=== PATIENT | male | born 1955 | race Caucasian/White ===

== ENCOUNTER → 2016-10-28 | Outpatient (CLI) | payer BC ==
[~2016-10-28] MED LIST: IBUP-103 PO
[2016-10-28 13:43] LABS: ALT/SGPT 50 U/L (12-78); AST/SGOT 18 U/L (15-37); BLOOD UREA NITROGEN 19 mg/dl (7-18); BUN/CREATININE RATIO 15.8 (10-20); CALCIUM 8.8 mg/dl (8.5-10.1); CARBON DIOXIDE 27 mmol/L (21-32); CHLORIDE 107 mmol/L (98-107); CHOLESTEROL 228 mg/dl (0-200); GLUCOSE 95 mg/dl (70-99); POTASSIUM 3.8 mmol/L (3.5-5.1); SODIUM 142 mmol/L (136-145); TRIGLYCERIDES 225 mg/dl (0-150); VERY LOW DENSITY LIPOPROT CALC 45 mg/dl
[2016-10-28 13:45] LABS: ALB/GLOB RATIO 1.1 (0.9-2); ALKALINE PHOSPHATASE 70 U/L (45-117); CHOLESTEROL/HDL RATIO 4.5; HDL CHOLESTEROL 51 mg/dl
[2016-10-28 13:47] LABS: ESTIMATED AVERAGE GLUCOSE 117 mg/dl; HA1C FLAG Normal (Normal)
== END | disposition home or self-care (01) ==
LOC: C.LABSPEC 12:37
PROVIDERS: ATTEND Internal Medicine
DX: E78.5 Hyperlipidemia, unspecified (principal); E73.9 Lactose intolerance, unspecified

== ENCOUNTER → 2016-12-21 | Outpatient (CLI) | payer BC | END | disposition home or self-care (01) | LOC: C.LABSPEC 15:05 | PROVIDERS: ATTEND Internal Medicine | DX: M70.22 Olecranon bursitis, left elbow (principal) ==

== ENCOUNTER → 2017-09-08 | Outpatient (CLI) | payer BC ==
[2017-09-08 13:51] LABS: INFLUENZA B ANTIGEN Neg for Influ B (NEG)
== END | disposition home or self-care (01) ==
LOC: C.LABSPEC 12:19
PROVIDERS: ATTEND Internal Medicine
DX: B34.9 Viral infection, unspecified (principal)

== ENCOUNTER 2017-09-19 15:22 | Emergency (ER) | payer BC ==
[~2017-09-19] VITALS: Ht 182.9 cm; Wt 89.0 kg
[2017-09-19 15:43] VITALS: TEMP 36.8; Ht 182.9 cm; Wt 89.0 kg
[2017-09-19] MEDS ORDERED: DIPHTHERIA/TETANUS/PERTUSSIS 0.5 ML SYR/VIAL IM. ONE (16:00)
[2017-09-19] MEDS ORDERED: LIDOCAINE/EPINEPHRINE 1% 20 ML VIAL INFIL STA (16:00)
--- NOTE | 2017-09-19 16:00 | EMERGENCY ROOM VISIT NOTE ---
ED Visit Note First contact with patient: 15:50 CHIEF COMPLAINT: Wrist injury HISTORY OF PRESENT ILLNESS: This 62 year old male patient presents to the emergency department, ambulatory, complaining of pain in the left wrist after falling, approximately 3 hours ago. The patient states he slipped on some ice, then landed into a pile of pallets. He believes he got his wrist caught in the pallets, then had to pull it out. He states he has been watching the news for the past 3 hours, but recently, noticed it swelling and look different than normal. The patient is able to move their wrist, but this is painful. The patient states the pain is throbbing and 5/10. No laceration of the left wrist, no weakness. No numbness or tingling. The patient denies any other injury. The patient is able to move their fingers and elbow without difficulty. The patient has not had a previous fracture to this wrist. The patient has taken nothing for the pain. He does report a laceration of the base of the right hand which continues to bleed. He states this is not painful and he denies any numbness/ tingling/weakness of this area. The patient states he is uncertain when his last tetanus vaccination was. REVIEW OF SYSTEMS: A 6 system review of systems was performed with positives and pertinent negatives in the HPI. ALLERGIES: None MEDICATIONS: None PMH: None SOCIAL HISTORY: The patient lives locally with family. He denies drug, alcohol , tobacco use. PHYSICAL EXAM: Vital Signs: Reviewed Nurse's notes, vital signs stable. GENERAL : This is a 62-year-old male, in no acute distress, but appears to be in pain, well-developed, well-nourished. NEURO: Alert and oriented to person place and time. Normal sensation to light and sharp touch. MUSCULOSKELETAL: There is mild swelling but no obvious deformity of the left wrist. There is tenderness and edema over the lateral aspect of the wrist, over the distal radius. There is no snuff box tenderness. Range of motion is full, but painful. There is no tenderness of the elbow, hand or fingers. Camp Counselor strength 5/5. Radial pulse 2+. SKIN: The skin of the left hand is intact. There are very superficial lacerations noted on the anterior aspect of the left wrist. There is a 1 cm long laceration on the anterior aspect of the right hand. The edges gape apart with traction. There is no foreign material in the wound and it looks clean. There is minimal bleeding. No deep structures such as tendons, bones, or significant blood vessels are seen in the base of the wound. Normal strength and movement of the fingers and wrist. Capillary refill less than 2 seconds. Normal sensation to light and sharp touch. RADIOLOGY: L WRIST W/NAVICULAR MIN 3 VIEWS CLINICAL HISTORY: left wrist pain/deformity, lateral trauma. Pain. COMPARISON: None. DISCUSSION: Oblique nondisplaced fracture base radial styloid extending to the articular surface. Lateral projection suggests several small avulsions dorsally which is most likely a nonacute. Moderate superimposed degenerative changes throughout. Moderate soft tissue edema IMPRESSION: Oblique fracture distal radius at the base of the radial styloid. This extends to the articular surface. EMERGENCY DEPARTMENT COURSE: I examined the patient. An X-ray of the left wrist was reviewed by myself and radiologist and showed distal radius fracture as above. A sugar tong orthoglass splint was placed under my direction and the position was satisfactory. Neurovascular status rechecked and intact. The patient is complaining of increased pain, and I offered pain medication, but he declines. Verbal consent was obtained to perform the procedure. Using sterile technique the wound was cleaned with Betadine. The area was sterilely draped. 4 ml of 1 % lidocaine with epinephrine was used to anesthetize the right hand. Once the patient was anesthetized, the wound was copiously irrigated under pressure with sterile saline. The wound was explored and there were no deep structures injured such as tendons, bone, or significant blood vessels. The laceration was repaired using 5 simple interrupted 5-0 nylon sutures with the wound edges being well approximated. The patient tolerated the procedure well. Hemostasis was achieved. The area was cleaned with sterile saline and dressed with bacitracin ointment and bandage. The patient was given a Tdap booster. The patient was discharged home in good condition. PDMP consulted, no findings noted. The patient was discharged home in good condition. I attest that I have personally reviewed the patient's current medication list. Patient was found to have normal blood pressure on screening and does not require follow-up. Differential diagnosis includes fracture, contusion, sprain/strain, open fracture, laceration, and others DIAGNOSIS: Left distal radius fracture, right hand laceration Problem List Medical Problems: (1) Kidney stones Status: Chronic Current/Historical Medications No Active Prescriptions or Reported Meds Allergies Coded Allergies: No Known Allergies (Unverified , 06/17/14) Vital Signs Date Time Temp Pulse Resp B/P (MAP) Pulse Ox O2 Delivery O2 Flow Rate FiO2 09/19/17 15:43 36.8 67 20 138/87 96 Room Air Medications Administered Medications (Trade) Dose Ordered Sig/Tiara Route Start Time Stop Time Status Last Admin Dose Admin Lidocaine/ Epinephrine (Xylocaine/Epine 1% Inj) 20 ml ONE STAT INFIL 09/19/17 16:00 09/19/17 16:02 DC 09/19/17 16:18 20 ML Diphtheria/ Pertussis/Tetanus Vacc (Adacel Inj) 0.5 ml ONCE ONCE IM. 09/19/17 16:00 09/19/17 16:02 DC 09/19/17 16:18 0.5 ML Departure Information Impression Primary Impression: Fracture of left distal radius Additional Impression: Laceration of right hand Dispostion Home / Self-Care Condition GOOD Prescriptions Oxycodone Ir (Roxicodone Ir) 5 Mg Tab 1 TAB PO Q4H Y for Pain, #15 TAB For Initial Treatment Prov: Sakina Gregorio PA-C 09/19/17 Referrals Jordy Jaramillo M.D. (PCP) Sanchez John D.O. Patient Instructions Distal Radius Fx, ED Fx Forearm Radius Ulna No Redu Requ, My [facility] Additional Instructions ORTHOPEDIC INSTRUCTIONS: DO NOT drive, drink alcohol, operate machinery, or perform dangerous activities today. You were given medications in the ER that can affect your ability to safely function or operate a vehicle. Oxycodone (OxyIR) 5mg: Take 1 pill every four to six hours as needed for breakthrough pain. Avoid alcohol, operating machinery or dangerous equipment, working on ladders or roofs, DRIVING, or situations where being under the influence may be dangerous. It is recommended to use an [id number] stool softener such as Colace, 100mg twice daily while taking this medication to avoid constipation. Ibuprofen(Motrin, Advil) may be used for fever or pain. Use 600mg every six hours as needed. Take with food. Avoid using more than 2400mg in a 24 hour period. Do not use 2400mg per day for more than three consecutive days without physician direction. Prolonged inappropriate use can lead to stomach upset or ulcers. (AND/OR) Acetaminophen(Tylenol) may be used for fever or pain. Use 1000mg every six hours as needed. Avoid using more than 3000mg in a 24 hour period. Ice compresses for 20 minutes at a time four times daily for 2-3 days. Use the sling as instructed. Remove your arm from the sling 4-6 times a day and move all the joints around to keep them loose. Rest and elevate your injury. Do not get the splint wet. If your splint feels excessively tight, you have worsening pain, develop numbness or tingling, or your digits appear blue, loosen the belkys wrap. Then reapply the belkys wrap gently without removing the splint. If your symptoms are not quickly relieved return to the ER for re- evaluation. Laceration Discharge Instructions: You have received 5 sutures on your right hand. These sutures are NOT dissolvable and WILL need to be removed by a health care provider in 8-10 days. You can return to the Emergency Department or contact your Primary Care Provider to have the sutures removed. Proper wound care is essential for adequate wound healing and infection prevention. You can shower and clean the wound with soap and water. Do not scour over the wound, pat dry with a towel. Do not submerse the wound (i.e. bathe or dish wash) until the sutures have been removed. You can use an antibiotic ointment with a dressing over the wound for the next 3-4 days. After this time you may leave the wound dry and open to the air. If crust develops over the wound you can use a Q-tip to apply a 1:1 peroxide:water solution to clean the wound. Look for signs of infection of the wound including: increased pain, swelling, foul discharge, streaking, or increased temperature. If any of these are noticed you should return to the Emergency Department for further assessment and treatment. As with any laceration you may have received nerve damage to the surrounding tissues. This damage may or may not be permanent. You should keep the area covered with sunscreen for the first 6 months to 1 year when at risk for exposure to help minimize scarring. You can also use scar reducing creams or Vitamin E oil to help minimize scarring. Return to the ER immediately for any numbness, tingling, severe pain, extreme swelling in the extremity, purulent drainage, redness, increased pain in the laceration area, or as needed. Call [facility], [phone], tomorrow to arrange follow up for your injury within the week. Follow-up with your primary care physician in 2 to 3 days for a recheck of your current condition. Problem Qualifiers Primary Impression: Fracture of left distal radius Encounter type: initial encounter Fracture type: closed Fracture morphology : other intra-articular Qualified Codes: S52.572A - Other intraarticular fracture of lower end of left radius, initial encounter for closed fracture Additional Impression: Laceration of right hand Encounter type: initial encounter Foreign body presence: without foreign body Qualified Codes: S61.411A - Laceration without foreign body of right hand , initial encounter
--- NOTE | 2017-09-19 17:01 | DIAGNOSTIC IMAGING REPORT ---
L WRIST W/NAVICULAR MIN 3 VIEWS CLINICAL HISTORY: left wrist pain/deformity, lateral trauma. Pain. COMPARISON: None. DISCUSSION: Oblique nondisplaced fracture base radial styloid extending to the articular surface. Lateral projection suggests several small avulsions dorsally which is most likely a nonacute. Moderate superimposed degenerative changes throughout. Moderate soft tissue edema IMPRESSION: Oblique fracture distal radius at the base of the radial styloid. This extends to the articular surface. The above report was generated using voice recognition software. It may contain grammatical, syntax or spelling errors. Electronically signed by: Puneet Sherwood M.D. 09/19/2017 4:32 PM Dictated Date/Time: 09/19/2017 4:31 PM
[2017-09-19] MEDS ORDERED: OXYC1TAB3 PO (17:27)
[2017-09-19 18:00] VITALS: BP 144/96; PULSE 70; O2SAT 96
== END 2017-09-19 18:01 | disposition home or self-care (01) ==
LOC: C.EDB 15:25 → C.EDD 18:01
DX: S52.572A Other intraarticular fracture of lower end of left radius, initial encounter for closed fracture (principal); S61.411A Laceration without foreign body of right hand, initial encounter; Z23 Encounter for immunization; W01.198A Fall on same level from slipping, tripping and stumbling with subsequent striking against other object, initial encounter

== ENCOUNTER → 2017-10-28 | Outpatient (CLI) | payer BC ==
[~2017-10-28] MED LIST changes: -IBUP-103 PO; +OXYC1TAB3 PO
[2017-10-28 13:05] LABS: BASO % 0.2 %; BASO ABS # 0.02 K/uL (0-0.2); EOS ABS # 0.32 K/uL (0-0.5); HEMATOCRIT 49.4 % (42-52); HEMOGLOBIN 16.8 g/dL (14.0-18.0); IG# 0.01 K/uL (0.00-0.02); LYMPH % 18.6 %; MEAN CELL VOLUME 87.4 fL (80-100); MEAN CORPUSCULAR HEMOGLOBIN 29.7 pg (25-34); MONO % 9.8 %; MONO ABS # 0.79 K/uL (0.11-0.59); NEUT % 67.3 %; NEUT ABS # 5.44 K/uL (1.4-6.5); PLATELET COUNT 207 K/uL (130-400); RED CELL DISTRIBUTION WIDTH CV 13.8 % (11.5-14.5); RED CELL DISTRIBUTION WIDTH SD 44.3 fL (36.4-46.3); WHITE BLOOD COUNT 8.08 K/uL (4.8-10.8)
[2017-10-28 13:14] LABS: ALBUMIN 3.7 gm/dl (3.4-5.0); ALT/SGPT 68 U/L (12-78); BLOOD UREA NITROGEN 16 mg/dl (7-18); CALCIUM 8.8 mg/dl (8.5-10.1); CARBON DIOXIDE 26 mmol/L (21-32); CHOLESTEROL 250 mg/dl (0-200); CREATININE 1.17 mg/dl (0.60-1.40); GLUCOSE 94 mg/dl (70-99); SODIUM 138 mmol/L (136-145)
[2017-10-28 13:25] LABS: ALKALINE PHOSPHATASE 74 U/L (45-117); AST/SGOT 28 U/L (15-37); LDL CHOLESTEROL (DIRECT) 172 mg/dl; TOTAL PROTEIN 7.4 gm/dl (6.4-8.2)
[2017-10-28 13:33] LABS: HEMOGLOBIN A1C 5.6 % (4.5-5.6)
== END | disposition home or self-care (01) ==
LOC: C.LABSPEC 12:31
PROVIDERS: ATTEND Internal Medicine
DX: R25.1 Tremor, unspecified (principal); R73.9 Hyperglycemia, unspecified; E78.5 Hyperlipidemia, unspecified; S62.102A Fracture of unspecified carpal bone, left wrist, initial encounter for closed fracture; X58.XXXA Exposure to other specified factors, initial encounter; N40.1 Benign prostatic hyperplasia with lower urinary tract symptoms; R30.0 Dysuria

== ENCOUNTER 2020-09-30 12:39 | Observation (INO) ==
--- NOTE | 2020-09-19 10:44 | PAT Medication Instructions ---
Medication Instructions Date of Service September 19, 2020 Home Medications Cbd Cream 1 dose TOPICAL UD PRN losartan 50 mg PO QAM tamsulosin [Flomax] 0.4 mg PO QAM STOP taking 24 hours before surgery Cbd Cream 1 dose TOPICAL UD PRN DO NOT take the morning of surgery losartan 50 mg PO QAM Take morning of surgery With a small sip of water, OTHERWISE NOTHING TO EAT OR DRINK AFTER MIDNIGHT: tamsulosin [Flomax] 0.4 mg PO QAM Other Notes If you have any questions please call us at [phone] or [phone] or [phone] or [phone]
--- NOTE | 2020-09-23 10:41 | Anesthesiology Consultation ---
Date of Service September 23, 2020 Assessment & Plan (1) Encounter for pre-operative examination: Chart Review Chart Review: Acceptable Risk for Surgery and Patient seen in Pre Admission Testing Per [facility] appt on 09/23/20, pt resides in [facility]. Denies any recent travel. Wears PPE. No known Covid positive contacts or Covid related symptoms. Pt denies known Covid infection in the past 90 days. Preop Covid testing done in [facility] on 09/23/20= negative. Educated on importance of self quarantining, social distancing and wearing mask in public both for the patient and household contacts. Cystolithopaxy 12/29/18= Done under [place] with LMA #5 igel. Good seal. Teaching & Discussion Pre-Anesthesia Teaching/Discussion Notes: Instructed NPO after midnight before surgery,except medications with 15 cc of water. Medication instructions p rovided according to the [facility] guidelines. History Surgery Operation Date: 09/30/20 12:20 Proposed Procedures p Transurethral Resection Prostate - Elmer English MD Height/Weight Height: 6 ft Weight: 90.1 kg Allergies Allergy/AdvReac Type Severity Reaction Status Date / Time No Known Allergies Allergy Verified 09/18/20 09:55 Medications Home Medications Medication Instructions Recorded Confirmed Last Taken Cbd Cream 1 dose TOPICAL UD PRN 12/15/18 09/18/20 12/22/18 losartan 50 mg PO QPM 09/18/20 09/23/20 Unknown tamsulosin [Flomax] 0.4 mg PO QPM 09/18/20 09/23/20 Unknown Past Medical History Medical History (Updated 09/23/20 @ 11:14 by Kirstin Metzger PA-C) Acid reflux Well controlled and stable Bladder stones hx of BPH w urinary obs/LUTS Degenerative disc disease OF NECK Fatty liver History of kidney stones Hyperlipidemia Was on meds in the past- no longer taking meds any longer due to patient preference Hypertension Lesion of pancreas NO INCREASE IN SIZE COMPARED TO 2011 SCAN (CT SCAN DECEMBER 08, 2018) Snores NO MAINE DX- NO HX OF SLEEP STUDY Tremor BILATERAL HANDS -- "HEREDITARY" - DR GARZON - NO MEDS Exercise / Class Metabolic Activity II 4-5 Yardwork/Stairs/Walk up hill (ONE FLIGHT OF STAIRS - NO CHEST PAIN OR SOB ) Past Family History Family History Other Cancer Hypertension Kidney disease Lung disease Past Surgical History Surgical History History of colonoscopy History of rotator cuff surgery LEFT Past Anesthesia History No Hx of Anesthesia Complications and No Family Hx of Anesthesia Complications History of PONV No Hx of PONV and No Hx of Motion Sickness Social History Smoking Status: Never smoker Do You Dip or Chew Tobacco: Yes (1can/3day- advised) Hx Alcohol Use: Yes Alcohol type: beer alcohol intake frequency: 0-2 drinks per day (2-3 beers per day ) Hx Substance Use: Yes substance use type: marijuana (occ) Review of Systems Patient denies chest pain, shortness of breath, dyspnea on exertion, cough, wheezing, palpitations. No hx of seizures, stroke, VA. No hx of blood clots or blood transfusions Physical Exam Vital Signs VITALS BP 128/79 P 61 TEMP 97.8 SP02 94% RESP 16 Constitutional no acute distress ENMT Mouth: no TMJ clicking Thyromental Distance: > or= 3.5 Finger Breadths (4.0) Mallampati Class: I Partial upper denture Lower molars missing Neck + limited neck extension (significant ) and + facial hair (trimmed mustache ) Respiratory normal respiratory effort; no respiratory distress Auscultation: lungs clear to auscultation bilaterally; no wheezes Cardiovascular Rate/Rhythm: regular rate and regular rhythm Heart Sounds: no murmur Vessels: no carotid bruit Musculoskeletal Spine: no pain with cervical ROM Extremities: extremities normal to inspection (TREMOR NOTED TO BILATERAL UE'S) Psychiatric Orientation: alert Testing Laboratory Results 09/23/20 11:10 09/23/20 11:10 Electrocardiogram Date: 09/23/20 Findings: + SB @ (52 bpm) Otherwise normal EKG. Chest X-Ray Date: 09/23/20 Findings: + NAD
--- NOTE | 2020-09-23 11:07 | PAT Medication Instructions ---
Medication Instructions Date of Service September 23, 2020 Home Medications Cbd Cream 1 dose TOPICAL UD PRN losartan 50 mg PO QPM tamsulosin [Flomax] 0.4 mg PO QPM STOP taking 24 hours before surgery Cbd Cream 1 dose TOPICAL UD PRN Take evening before surgery losartan 50 mg PO QPM tamsulosin [Flomax] 0.4 mg PO QPM OTHERWISE NOTHING TO EAT OR DRINK AFTER MIDNIGHT Other Notes If you have any questions please call us at [phone] or [phone] or [phone] or [phone]
--- NOTE | 2020-09-23 11:29 | XRay Report ---
XR chest Pre-admission PA/Lat CLINICAL HISTORY: Preoperative chest COMPARISON STUDY: 01/10/2019 FINDINGS: The cardiac and mediastinal contours are normal. There is no evidence of focal pulmonary co nsolidation. There is no evidence of failure. No pleural effusions are visualized.[A density projecte d over the mid dorsal spine on the lateral view, likely represents visualization of osteophytes en fa ce. IMPRESSION: No active disease in the chest. ACT 112: Negative or not required by law. Electronically signed by: Rex Khan M.D. 09/23/2020 11:28 AM
[2020-09-23 11:42] LABS: Basophils # (auto) 0.02 K/uL (0-0.2); Basophils % (auto) 0.3 %; Eosinophils # (auto) 0.06 K/uL (0-0.5); Eosinophils % (auto) 0.8 %; Hematocrit (blood only) 46.9 % (42-52); Hemoglobin 15.6 g/dL (14.0-18.0); Immature Granulocytes # (auto) 0.01 K/uL (0.00-0.02); Immature Granulocytes % (auto) 0.1 %; Lymphocytes # (auto) 1.19 K/uL (1.2-3.4); Lymphocytes % (auto) 16.7 %; Mean Corpuscular Hemoglobin 29.3 pg (25-34); Mean Corpuscular Hgb Conc 33.3 g/dL (32-36); Mean Corpuscular Volume 88.2 fL (80-100); Mean Platelet Volume 11.9 fL (7.4-10.4); Monocytes # (auto) 0.67 K/uL (0.11-0.59); Monocytes % (auto) 9.4 %; Neutrophils # (auto) 5.18 K/uL (1.4-6.5); Neutrophils % (auto) 72.7 %; Platelet Count 203 K/uL (130-400); RDW Coefficient of Variation 13.7 % (11.5-14.5); RDW Standard Deviation 44.7 fL (36.4-46.3); Red Blood Count 5.32 M/uL (4.7-6.1); White Blood Count 7.13 K/uL (4.8-10.8)
[2020-09-23 14:38] LABS: BUN Creatinine Ratio 15.7 (10-20); Calcium 9.4 mg/dl (8.5-10.1); Creatinine Clr Calc Pharmacy 69.4 ml/min; Est GFR (African American) 76.4; Est GFR (Non-African American) 65.9
--- NOTE | 2020-09-24 06:11 | Electrocardiogram Report ---
Test Reason : Blood Pressure : / mmHG Vent. Rate : 052 BPM Atrial Rate : 052 BPM P-R Int : 166 ms QRS Dur : 100 ms QT Int : 428 ms P-R-T Axes : 056 048 071 degrees QTc Int : 398 ms Sinus bradycardia Otherwise normal ECG When compared with ECG of 18-DEC-2018 10:05, No significant change was found Confirmed by Armani Whitley ([id number]) on 09/24/2020 6:10:58 AM Referred By: Elmer English Confirmed By:Armani Whitley
[~2020-09-30 12:39] MED LIST changes: +CIPROFLOXACIN / D5W 400 MG/200 ML BAG IV SCH; +LR 15ML/HR IV SCH; -OXYC1TAB3 PO
--- NOTE | 2020-09-30 14:42 | History & Physical Report ---
Date of Service September 30, 2020 Assessment & Plan (1) BPH w urinary obs/LUTS: plan for TURP 23hr obs stay History of Present Illness Primary Care Provider: Jordy Briggs MD Hx of bph and bladder calculi - gradual decline in voiding pattern here now for TURP Allergies Allergy/AdvReac Type Severity Reaction Status Date / Time No Known Allergies Allergy Verified 09/30/20 12:55 Home Medications Medication Instructions Recorded Confirmed Type Cbd Cream 1 dose TOPICAL UD PRN 12/15/18 09/30/20 History losartan 50 mg PO QPM 09/18/20 09/30/20 History tamsulosin [Flomax] 0.4 mg PO QPM 09/18/20 09/30/20 History Past Med/Surg History Medical History Acid reflux Well controlled and stable Bladder stones hx of BPH w urinary obs/LUTS Degenerative disc disease OF NECK Fatty liver History of kidney stones Hyperlipidemia Was on meds in the past- no longer taking meds any longer due to patient preference Hypertension Lesion of pancreas NO INCREASE IN SIZE COMPARED TO 2011 SCAN (CT SCAN DECEMBER 08, 2018) Snores NO MAINE DX- NO HX OF SLEEP STUDY Tremor BILATERAL HANDS -- "HEREDITARY" - DR GARZON - NO MEDS Surgical History History of colonoscopy History of rotator cuff surgery LEFT Family History Other Cancer Hypertension Kidney disease Lung disease Social History Smoking Status: Never smoker Second Hand Exposure: No; Do You Dip or Chew Tobacco: Yes (1can/3day- advised); Tobacco Cessation Education Requested by Patient: No Hx Alcohol Use: Yes Alcohol type: beer Hx Substance Use: No Preferred Language: Cymraes Communication Ability: Effective Principal Statistical Programmer Required: No Beliefs That Will Affect Care: None Current Living Situation: Spouse Current Living Situation Comment: LIVES WITH AND SON Other Information That Helps Us Care for You: No Feels Safe at Home: Yes Safety Concerns: Feels Safe At This Time Assistive Devices: Glasses Review of Systems All systems reviewed & are unremarkable except as noted in HPI & below Physical Exam Constitutional: well developed and well nourished Neck: neck nontender Respiratory: normal respiratory effort; no respiratory distress and does not use accessory muscles Cardiovascular: Rate/Rhythm: regular rate Vessels: radial pulses present Extremities: no edema Gastrointestinal (Abdomen): Inspection/Auscultation: abdomen normal to inspec tion Percussion/Palpation: abdomen soft; abdomen nontender and no guarding Musculoskeletal: Head/Neck/Chest: normocephalic and head atraumatic Extremities: extremities normal to inspection Skin: no rashes and no lesions Trauma: no evidence of skin trauma Neurologic: awake; not obtunded Speech / Cognition: normal speech Motor/Sensory: no tremor Psychiatric: Orientation: alert and oriented x 3 Genitourinary: no CVA tenderness Lymphatic: no lymphadenopathy Results & Data ([facility]) Vital Signs (Past 12 Hours) Vital Signs Temp Pulse Resp BP Pulse Ox 09/30/20 12:59 37.1 C 66 20 148/92 H 98
[2020-09-30] MEDS ORDERED: PROMETHAZINE HCL 12.5 MG in SODIUM CHLORIDE 0.9% 50 ML IV PRN (15:19)
[2020-09-30] MEDS ORDERED: ePHEDrine sulfate 50 MG/ML AMP IV PRN (15:19)
[2020-09-30] MEDS ORDERED: fentaNYL citrate 100 MCG/2 ML VIAL IV PRN (15:19)
[2020-09-30] MEDS ORDERED: ONDANSETRON INJ 2 MG/ML 2 ML VIAL IV PRN (15:19)
[2020-09-30] MEDS ORDERED: FLUMAZENIL 0.1 MG/1 ML 10 ML VIAL IV PRN (15:19)
[2020-09-30] MEDS ORDERED: NALOXONE HCL 0.4 MG/1 ML VIAL/CARP IV PRN (15:19)
[2020-09-30] MEDS ORDERED: LABETALOL HCL IV 5 MG/ML 20ML IV PRN (15:19)
[2020-09-30] MEDS ORDERED: ATROPINE SULFATE 0.1 MG/ML 10ML SYR IV PRN (15:19)
[2020-09-30] MEDS ORDERED: LIDOCAINE HCL 2% 2 ML VIAL/AMP(20MG/ML) INFIL ONE (16:06)
[2020-09-30] MEDS ORDERED: PROPOFOL IV EMULSION 10 MG/ML 20 ML VIAL IV ONE (16:06)
[2020-09-30] MEDS ORDERED: ePHEDrine sulfate 50 MG/ML SYR ONE (16:06)
[2020-09-30] MEDS ORDERED: MIDAZOLAM HCL 1 MG/ML 2ML VIAL ONE (16:06)
[2020-09-30] MEDS ORDERED: ONDANSETRON INJ 2 MG/ML 2 ML VIAL ONE (16:06)
[2020-09-30] MEDS ORDERED: PHENYLEPHRINE 100MCG/ML 5ML SYR ONE (16:06)
[2020-09-30] MEDS ORDERED: fentaNYL citrate 100 MCG/2 ML VIAL ONE ×2 (16:06→17:42)
[2020-09-30] MEDS ORDERED: DEXAMETHASONE SOD INJ 4 MG/ML VIAL ONE (16:43)
--- NOTE | 2020-09-30 18:26 | Operative Report ---
PG Post Operative Report Pre & Post Diagnosis Operation Date: 09/30/20 14:30 Pre-Op Diagnosis: Benign Prostate Hyperplasia with Urinary Osbruction Post-Op Diagnosis: BPH; bladder calculi; meatal stenosis I identified the patient and participated in the time-out.: Yes Procedure Operation Date: 09/30/20 14:30 Actual Procedures p Transurethral Resection Prostate, Laser cystolithopaxy, Urethral dilation(Not Applicable) - Elmer English MD Surgeon Roberto English MD Enrobing Machine Feeder none Estimated Blood Loss 10 Findings Consistent with Post-Op Diagnosis Specimens Bladder calculi for chemical analysis Description of Procedure The patient was identified in the preoperative holding area, appropriate informed consents were reviewed and completed and the patient was transferred to the operative suite. Upon arrival, appropriate antibiotics and anesthesia were administered and the patient was placed in dorsal lithotomy position and prepped and draped in sterile fashion. To begin the case I attempted to pass a 27 Spanish resectoscope with 30 degree lens and visual obturator, however I could not bypassed the fossa navicularis which was moderately narrowed. Instead I performed a urethral dilation utilizing male urethral sounds. I began at 22 Spanish and extended this to 30 Spanish without difficulty. I was unable to pass the scope without issue. The remainder of the urethra was without stricture. His prostate is notably enlarged with substantial lateral lobe hypertrophy as well as a large intravesical median lobe and very high bladder neck. Upon bypassing the prostate I immediately encountered 3 very large yellow appearing calculi. The remainder of the bladder mucosa was healthy in appearance aside from minimal irritation from the stone. Given the size of the median lobe and the high bladder neck, I elected to treat the prostate tissue first. Using a button electrode I was able to resect the intravesical median lobe and flatten the bladder neck. I then proceeded to resect the lateral lobes slightly, however after opening the bladder neck and removing the intravesical component, the lateral lobe obstruction was much less notable. After ensuring appropriate hemostasis. I exchanged the resecting element for standard cystoscope. I then passed a 1000 m laser fiber I began litholapaxy. Laser litholapaxy was conducted until all stones were fragmented into pieces that could be safely be irrigated out of the bladder. I then exchanged back to the resecting scope with the larger lumen, and was able to irrigate all the stone debris out of the bladder. I repeated my meticulous hemostasis survey. I then confirmed a widely patent prostatic fossa. I placed a 22 Spanish Woodward catheter without difficulty and concluded the case. Bladder calculi were collected and passed off the table for chemical analysis. There were no complications, he tolerated the procedure very well and was extubated and taken to the PACU in stable condition. I attest to the content of the Intraoperative Record and any orders documented therein. Any exceptions are noted below.
--- NOTE | 2020-09-30 18:54 | Anesthesiology Progress Note ---
Date of Service September 30, 2020 Anesthesia Post Procedure Vital Signs Vital Signs: Temp Pulse Pulse Resp BP Pulse Ox 09/30/20 18:50 63 18 137/82 95 09/30/20 18:40 69 14 136/86 95 09/30/20 18:30 64 17 133/80 100 09/30/20 18:21 36.2 C L 74 16 131/80 100 09/30/20 12:59 37.1 C 66 20 148/92 H 98 Transfer of Care Handoff Completed per policy Notes Mental Status: alert / awake / arousable Patient Amnestic to Procedure: Yes Nausea / Vomiting: adequately controlled Pain: adequately controlled Airway Patency, RR, SpO2: stable & adequate BP & HR: stable & adequate Hydration State: stable & adequate Anesthetic Complications: no major complications apparent
[2020-09-30] MEDS ORDERED: oxyCODONE/ACETAMINOPHEN 5mg/325mg TAB PO PRN (19:58)
[2020-09-30] MEDS ORDERED: ACETAMINOPHEN 325 MG TAB PO PRN (19:58)
[2020-09-30] MEDS: LACTATED RINGER'S 1,000 ML IV SCH (20:52)
[2020-09-30] MEDS ORDERED: LOSARTAN POTASSIUM 50 MG TAB PO SCH (21:00)
[2020-10-01] MEDS: ceFAZolin 2000MG 2,000 MG/15 ML SYR IV SCH ×2 (00:09→07:26)
[2020-10-01] MEDS: LACTATED RINGER'S 1,000 ML IV SCH (04:57)
[2020-10-01 07:01] LABS: Eosinophils # (auto) 0.01 K/uL (0-0.5); Eosinophils % (auto) 0.1 %; Hematocrit (blood only) 43.6 % (42-52); Hemoglobin 14.7 g/dL (14.0-18.0); Immature Granulocytes # (auto) 0.02 K/uL (0.00-0.02); Immature Granulocytes % (auto) 0.2 %; Lymphocytes # (auto) 0.92 K/uL (1.2-3.4); Lymphocytes % (auto) 7.8 %; Mean Corpuscular Hemoglobin 29.8 pg (25-34); Mean Corpuscular Hgb Conc 33.7 g/dL (32-36); Mean Corpuscular Volume 88.3 fL (80-100); Mean Platelet Volume 11.3 fL (7.4-10.4); Monocytes # (auto) 0.95 K/uL (0.11-0.59); Monocytes % (auto) 8.1 %; Neutrophils # (auto) 9.82 K/uL (1.4-6.5); Neutrophils % (auto) 83.8 %; Platelet Count 204 K/uL (130-400); RDW Coefficient of Variation 13.7 % (11.5-14.5); RDW Standard Deviation 44.5 fL (36.4-46.3); Red Blood Count 4.94 M/uL (4.7-6.1); White Blood Count 11.72 K/uL (4.8-10.8)
[2020-10-01 07:29] LABS: BUN Creatinine Ratio 14.8 (10-20); Calcium 9.1 mg/dl (8.5-10.1); Creatinine Clr Calc Pharmacy 77.4 ml/min; Est GFR (African American) 87.3; Est GFR (Non-African American) 75.3; Potassium 4.1 mmol/L (3.5-5.1)
--- NOTE | 2020-10-01 08:11 | Urology Progress Note ---
Date of Service October 01, 2020 Assessment & Plan (1) Bladder calculus: (2) BPH w urinary obs/LUTS: pod #1 s/p TURP voiding trial this AM - d.c home later today Admission and Anticipated Discharge Date Admission Date: September 30, 2020 Subjective no issues overnight urine clear anxious for a voiding trial and to go home Physical Exam Physical Exam: clear urine Results & Data ([facility]) Vital Signs (Past 12 Hours) Vital Signs Temp Pulse Resp BP Pulse Ox 10/01/20 07:49 36.8 C 54 L 16 133/86 96 10/01/20 02:20 36.8 C 53 L 16 130/74 96 09/30/20 22:45 36.8 C 68 16 133/82 95 09/30/20 21:45 36.7 C 66 16 146/78 H 95 09/30/20 20:45 36.6 C 67 16 155/86 H 97 09/30/20 20:15 36.3 C L 60 16 156/87 H 98 PG Care Time/CCT Total # of Minutes Spent Total Time Spent with Patient: Total time spent is greater than 50% in coordination of care (as documented) at patient's floor/unit and/or counseling patient: Coding Level of Care Code 84313 Subseq Hosp Care Lvl 2 Diagnoses Bladder calculus N21.0 BPH w urinary obs/LUTS N40.1; N13.8
--- NOTE | 2020-10-01 11:57 | Discharge Summary ---
Date of Service October 01, 2020 Admission HPI Per Admitting Provider Hx of bph and bladder calculi - gradual decline in voiding pattern here now for TURP Admission Exam Per Admitting Provider See H&P Principal Diagnosis BPH; bladder calculi; meatal stenosis Discharge Exam Constitutional well developed, well nourished and comfortable; no acute distress Respiratory normal respiratory effort and able to speak in complete sentences; no respiratory distress and no audible wheezes Gastrointestinal (Abdomen) Inspection/Auscultation: abdomen normal to inspection; abdomen not distended Percussion/Palpation: abdomen soft; abdomen nontender Psychiatric Orientation: alert, oriented x 3 and cooperative Motor Behavior: steady gait and station Affect: euthymic affect Genitourinary no CVA tenderness Discharge Data Allergies Allergy/AdvReac Type Severity Reaction Status Date / Time No Known Allergies Allergy Verified 09/30/20 12:55 Procedures Performed Operation Date: 09/30/20 14:30 Actual Procedures p Transurethral Resection Prostate, Laser cystolithopaxy, Urethral dilation(Not Applicable) - Elmer English MD Hospital Course (1) Bladder calculus: (2) BPH w urinary obs/LUTS: Patient underwent Transurethral Resection Prostate, Laser cystolithopaxy, Urethral dilation on 09/30/20. No complications post procedure. He was seen POD#1, feeling well. Vital signs and labs appropriate and as expected. Woodward catheter was removed POD #1 in AM. Patient voiding spontaneously without difficulty. Pain controlled, tolerating diet, ambulating without dizziness. Discharged home in stable condition 10/01/20. Total Time Total Time Spent Total Time Spent (In Minutes): 10 Discharge Plan Discharge Items Patient Disposition: Home - Self-Care Reason For Visit: Benign Prostate Hyperplasia with Urinary Osbructio Discharge Diagnosis: Benign prostate hyperplasia with urinary obstruction, bladder calculi, meatal stenosis Activity: Per Instructions section Lifting: No more than 10 pounds Bathing Comment: No tub baths or soaking. Okay to shower tonight. Sexual Activity: Wait until after follow-up appointment Exercise/Sports: Wait until after follow-up appointment Driving/Machine Use: Do not drive while taking narcotic pain medication Non-emergency contact: Surgeon and Urologist Call non-emergency contact if: your pain is not controlled and your temperature is above 101 Follow-up/Referrals: Elmer English MD [Physician] - 10/15/20 2:30 pm Jordy Briggs MD [Primary Care Provider] - Diet: Regular Addtl Attending Provider Instructions: Please take all medications as prescribed and keep all follow-ups as scheduled. Please call our office at [phone] with any questions, concerns or need to reschedule appointments for any reason. We are happy to assist you. Tips for your recovery at home: Dont be alarmed by brownish or reddish blood or clots in your urine. This is a result of the procedure. This may occur off and on for weeks to months after the procedure but should continue to improve. Drink plenty of fluids during the day (enough to keep your urine very light colored). This will help keep a healthy flow of urine. Do not lift >25 lbs until your followup Avoid constipation. Please use a stool softener (Colace) for the first two weeks after your procedure Be sure to finish the antibiotics as prescribed. If you go home with a catheter, please wash tubing where it enters your body twice daily with mild soap (Dove or Dial). Once your catheter is removed, expect some blood in your urine and some burning when you urinate. You should have an appointment to have this removed, if you do not please call our office to arrange. When to call [facility] at [phone]: Your urine contains heavy blood clots You are constantly leaking urine Fever of 101F or higher, chills, nausea, or vomiting Your pain is not relieved with medication Pending Studies at Discharge: Yes Studies:: Pathology Stand-Alone Forms: My [facility], Smoking Cessation Medications and DC Order Prescriptions: Continued Cbd Cream 1 dose topical UD PRN (Reason: NECK PAIN) RF: 0 losartan 50 mg Tablet 50 mg PO QPM RF: 0 Discontinued tamsulosin [Flomax] 0.4 mg capsule 0.4 mg PO QPM RF: 0 Discharge Orders: Discharge Order (Routine); Ordered 10/01/20 Ordered By: Heidi Hutchison Admission Data Admit Date/Time: 09/30/20 18:28 Attending Provider: Elmer English Admit Provider: Elmer English Primary Care Provider: Jordy Briggs Other Interventions: Discharge Summary Assessment (RN) Last Done: 10/01/20 10:15 Coding Level of Care Code D/C Day Management <30 mins Diagnoses Bladder calculus N21.0 BPH w urinary obs/LUTS N40.1; N13.8
[2020-10-04 19:11] LABS: Component 2 DNR; Source BLADDER STONE
== END 2020-10-01 10:48 | disposition home or self-care (01) ==
LOC: 3W 12:39 → ASU 12:39

== ENCOUNTER 2024-12-03 09:31 | Observation (INO) ==
[2024-12-03] MEDS: SODIUM CHLORIDE 0.9% 1,000 ML IV SCH (10:12)
[2024-12-03 10:28] LABS: Basophils # (auto) 0.03 K/uL (0.00-0.20); Basophils % (auto) 0.4 %; Eosinophils # (auto) 0.12 K/uL (0.00-0.50); Eosinophils % (auto) 1.6 %; Hematocrit (blood only) 45.5 % (42.0-52.0); Immature Granulocytes # (auto) 0.01 K/uL (0.01-0.20); Immature Granulocytes % (auto) 0.1 %; Lymphocytes # (auto) 1.26 K/uL (1.20-3.40); Lymphocytes % (auto) 16.8 %; Mean Corpuscular Hemoglobin 29.2 pg (25.0-34.0); Mean Corpuscular Volume 88.5 fL (80.0-100.0); Mean Platelet Volume 11.6 fL (9.4-12.4); Monocytes # (auto) 0.68 K/uL (0.11-0.59); Monocytes % (auto) 9.1 %; Neutrophils # (auto) 5.39 K/uL (1.40-6.50); Platelet Count 187 K/uL (130-400); RDW Coefficient of Variation 13.4 % (11.5-14.5); RDW Standard Deviation 43.7 fL (36.4-46.3); Red Blood Count 5.14 M/uL (4.70-6.10); White Blood Count 7.49 K/ul (4.8-10.8)
--- NOTE | 2024-12-03 10:36 | XRay Report ---
XR chest 1V portable CLINICAL HISTORY: dizzy, LUE pain COMPARISON STUDY: Chest radiograph 09/23/2020. FINDINGS: Lung volumes are normal. Lungs are clear. There is no pneumothorax or pleural effusion. Car diac size is normal. Mediastinal contours are normal. There is no evidence for pulmonary edema. IMPRESSION: No acute cardiopulmonary findings. ACT 112: Negative or not required by law. Electronically signed by: Madhu Lomeli M.D. 12/03/2024 10:35 AM
[2024-12-03 10:48] LABS: Albumin Globulin Ratio 1.6 (0.9-2); Albumin Level 4.4 gm/dl (3.4-5.0); BUN Creatinine Ratio 17.6 (10-20); Bilirubin,Total 0.5 mg/dl (0.2-1.0); Globulin 2.8 gm/dl (2.5-4.0); Magnesium 2.1 mg/dl (1.7-2.4); Potassium 4.8 mmol/L (3.5-5.1); Total Protein 7.2 gm/dl (6.0-8.3)
[2024-12-03 10:54] LABS: Prothrombin Time 10.8 Seconds (9.0-12.0); Troponin I High Sensitivity 7.8 pg/ml (0-20)
[2024-12-03 11:04] LABS: Thyroid Stimulating Hormone 2.14 uIu/ml (0.300-4.500)
[2024-12-03] MEDS: OPTIRAY 320 125ml IV ONE (11:49)
--- NOTE | 2024-12-03 12:04 | CT Scan Report ---
CT SCAN OF THE BRAIN WITHOUT IV CONTRAST CLINICAL HISTORY: Dizziness. Left upper extremity paresthesias. COMPARISON STUDY: Head CT January 10, 2019. TECHNIQUE: Unenhanced axial CT scan of the brain was performed from the vertex to the skull base. A dose lowering technique was utilized adhering to the principles of ALARA. FINDINGS: Brain parenchyma: No acute intracranial hemorrhage, midline shift or mass effect is present. Morrison-whi te matter differentiation is preserved. There are no extra-axial fluid collections. There are no find ings to suggest acute dural sinus thrombosis or acute territorial infarct. Ventricles, sulci, cisterns: There is no hydrocephalus. The basal cisterns are patent. Calvarium: Unremarkable. A small lipoma within the left forehead is unchanged. Sinuses and mastoids: The mastoid air cells are clear. There is mild polypoid mucosal thickening of t he maxillary sinuses. Orbits: The bony orbits are grossly intact. IMPRESSION: No acute intracranial findings. ACT 112: Negative or not required by law. Electronically signed by: Madhu Lomeli M.D. 12/03/2024 12:02 PM
--- NOTE | 2024-12-03 12:43 | CT Scan Report ---
CT angio head w con, CT angio neck with con CLINICAL HISTORY: 69 years-old Male with dizzy, LUE paresthesias. Acute dizziness COMPARISON STUDY: Head CT of same day TECHNIQUE: Following the IV administration of 120 cc of Optiray, CT angiogram of the head and neck wa s performed from the aortic arch to the skull apex. Images are reviewed in the axial, sagittal, and c oronal planes. 3-D MIPS images are created and assessed. IV contrast was administered without complic ation. All measurements were obtained according to NASCET criteria. A dose lowering technique was uti lized adhering to the principles of ALARA. CT DOSE: 1294.05 mGy.cm FINDINGS: CT BRAIN: Dictated separately CT ANGIOGRAM OF THE HEAD AND NECK: For vessel morphology of the thoracic aortic arch. Patency of the innominate and imaged subclavian ar teries. The common carotid arteries are patent. Moderate atherosclerosis of the carotid bulbs causes less than 50% stenosis bilaterally. The bilateral anterior and middle cerebral arteries are also benton nt. Dominant right vertebral artery. 50% stenosis of the V2 segment left vertebral artery at the leve l of C5-C6 secondary to uncovertebral hypertrophy. The vertebrobasilar system and posterior cerebral arteries are otherwise widely patent. There is no aneurysm, high-grade stenosis, or proximal branch o cclusion identified. Dural sinuses appear patent. The lung apices are clear. Calcifications of the posterior longitudinal ligament, most pronounced at C4-C5. Left frontal scalp lipoma measures 1.8 cm. IMPRESSION: CTA of the head and neck demonstrates no aneurysm, dissection, high-grade stenosis or art erial occlusion. ACT 112: Negative or not required by law. The above report was generated using voice recognition software. It may contain grammatical, syntax o r spelling errors. Electronically signed by: Donnie Johnson M.D. 12/03/2024 12:40 PM
--- NOTE | 2024-12-03 12:47 | Emergency Department Note ---
Impression & Plan Dizziness, Arm paresthesia, left ED Provider Note ED Provider Note NAME: ELVER FONTANEZ AGE:69 SEX: Male : 1955 ARRIVES VIA: Private vehicle INFORMANT: Patient ED PROVIDER(s): Lyn Hudson DO CHIEF COMPLAINT: Dizziness HPI: This is a 69-year-old male presents emergency department due to concern for intermittent dizziness that began last week. Patient states he first noticed symptoms after working in the garden for quite some time. He states he had been bent over and stood up and felt dizzy. He states dizziness has been persistent since then, worse with position change, but states it has not gone away.. He denies any sense of spinning but describes it more as a lightheadedness. He denies any coming headaches, vision changes, neck pain, nausea or vomiting. He states he also began to notice over the weekend some numbness and tingling down the left arm. No trauma or increase use of the left arm. He is right-hand dominant. The numbness and tingling does not change with position. He denies any accompanying chest pain or pressure, shortness of breath, back pain, abdominal pain. No recent fevers, chills, or URI symptoms. No recent change in medications. Patient states he contacted his PCP to be seen due to the persistence of his symptoms and was referred here for additional evaluation. PAST MEDICAL HISTORY:See Below PAST SURGICAL HISTORY:See Below FAMILY HISTORY:See Below SOCIAL HISTORY:See Below HOME MEDICATIONS:See Below ALLERGIES:See Below VITALS:See Below PHYSICAL EXAMINATION: GENERAL: alert, well appearing, well nourished, no distress, non-toxic EYE EXAM: normal conjunctiva, PERRL and EOM's grossly intact OROPHARYNX: no exudate, no erythema, lips, buccal mucosa, and tongue normal and mucous membranes are moist NECK: supple, no nuchal rigidity, no adenopathy, non-tender, FROM LUNGS: Clear to auscultation. Normal chest wall mechanics, no w/r/r HEART: no murmurs, S1 normal and S2 normal ABDOMEN: abdomen soft, non-tender, normo-active bowel sounds, no masses, no rebound or guarding. SKIN: no rashes, petechiae, orbruising UPPER EXTREMITIES: upper extremities are grossly normal. FROM, nml pulses b/l. Equal sensation bilaterally per patient report. No edema or evidence of trauma. LOWER EXTREMITIES: No pitting edema. FROM, nml pulses b/l. NEURO EXAM: Normal sensorium, cranial nerves II-XII grossly intact, normal speech, no facial droop,nogross weakness of arms, no gross weakness of legs. Gross sensation intact. No ataxia. Vital Signs: reviewed and remarkable Differential Diagnosis: benign positional vertigo, dehydration, hypovolemia, anemia, tumor, hypoglycemia, electrolyte abnormalities, ICH, CVA, dysrhythmia, as well as others were entertained. MEDICAL DECISION MAKING: This is a 69-year-old male who presents emergency department due to concern for several days of dizziness and left upper extremity paresthesias. Patient was afebrile and hemodynamically stable. No obvious neurodeficit noted at bedside, no reproducible symptoms. Labs drawn and sent, IV established, EKG and chest x- ray performed at bedside and interpreted by me. Patient started on gentle IV fluid hydration and was sent for CT/CTA additionally following reassuring EKG and negative troponin at bedside. We did discuss differential diagnosis. CT/CTA was reassuring as well however patient had persistent symptoms. We did attempt to reproduce dizziness with orthostatic vital signs at bedside however this was negative. After further discussion, patient was in agreement with plan to perform MRI brain. Patient offered anxiolytics prior to this however felt he could undergo the testing without any sedation. Unfortunately nursing staff reported when patient was placed in the MRI machine he began to panic and had increased anxiety and demanded to be removed and brought back to the room. Patient offered medication when I went to recheck him at bedside and initially declined. We discussed limitations of not following up the MRI given his risk factors for stroke. We also discussed the differential diagnosis. Patient ultimately in agreement with plan for inpatient evaluation including MRI under likely sedation and possible additional testing pending further review by the hospitalist. Following additional discussion patient agreement with IV Ativan as he was still anxious and pacing the room. Case discussed with the hospitalist team for additional evaluation and management. At this time I do not suspect occult cardiac etiology of his symptoms. I do not suspect occult infection or acute orthopedic emergency. Patient with multiple risk factors for CVA/TIA. Consultation(s): 5336: Discussed with Dr. Ferreira, [facility] hospitalist team, for additional evaluation and management. ER Treatment Provided: See below 1620: After further discussion with the patient as he was unable to have an MRI performed due to increased anxiety and claustrophobia, he was offered additional medications to attempt it again and declined stating he would need to be sedated in order to have this done. We discussed options for disposition. Diagnostics Interpreted By Me: -ECG: Sinus bradycardia at 55, normal axis, normal intervals, no acute ST/T wave changes -Cardiac Monitoring: An order was placed for continuous cardiac monitoring. The monitor shows a rate of 58 with sinus bradycardia rhythm. -Laboratory studies: As stated above and show below. -Imaging studies: ct head: no ICH X-ray Chest: A single view study of the chest was reviewed and was negative for cardiomegaly, focal infiltrate, effusion, pulmonary edema, or wide mediastinum. Triage Nursing Note Reviewed Prior/Outside Records Reviewed Past Med/Surg History Problem List (Updated 12/03/24 @ 12:47 by Lyn Hudson DO) Arm paresthesia, left (Acute) Dizziness (Acute) Tinnitus Prediabetes Erectile dysfunction Kidney stones, calcium oxalate GERD without esophagitis Essential tremor Hypertension BPH w urinary obs/LUTS Lesion of pancreas NO INCREASE IN SIZE COMPARED TO 2011 SCAN (CT SCAN DECEMBER 08, 2018) Fatty liver Tobacco use disorder (Chronic) Hyperlipidemia Medical History Fatty liver Essential tremor Prediabetes Lesion of pancreas Hypertension Hyperlipidemia GERD (gastroesophageal reflux disease) Benign localized prostatic hyperplasia with lower urinary tract symptoms (LUTS) Hiatal hernia Tinnitus of both ears Vitamin D deficiency Bladder calculus Bladder stones History of kidney stones Degenerative disc disease Snores Ureteral calculus Kidney stones Surgical History Hx of lithotripsy Hx of transurethral resection of prostate S/P excision of lipoma H/O knee surgery History of colonoscopy History of rotator cuff surgery History of repair of rotator cuff Family History Father Cancer Lung cancer Mother Hypertension Myocardial infarction Son Non Hodgkin's lymphoma Other COPD (chronic obstructive pulmonary disease) Kidney disease Lung disease Denies family history of Ovarian cancer Prostate cancer Breast cancer Social History Smoking Status: Never smoker Tobacco Type: Smokeless Tobacco (Dip or Chew) and Declines Cigarettes Per Day: 1 can every 2-3 days; Second Hand Exposure: No; Do You Dip or Chew Tobacco: Yes (Advised); Hx Alcohol Use: Yes Alcohol type: beer Alcohol Intake Frequency: Monthly or Less Hx Substance Use: Yes Last Used Substance: Unknown Last Used Substance Other:: Advised Substance Use Type Other:: "Cannabis gummies" Preferred Language: Taiwanese Communication Ability: Effective Box Turner Required: No Beliefs That Will Affect Care: None marital status: Current Living Situation: Spouse Current Living Situation Comment: LIVES WITH AND SON current occupational status: retired How many Children do You have: 2 Feels Safe at Home: Yes Diet: regular during the past year weight has: remained stable Seatbelt Use: always Assistive Devices: Glasses Allergies Allergies Allergy/AdvReac Type Severity Reaction Status Date / Time No Known Allergies Allergy Verified 11/02/24 13:58 Home Meds Previous Rx's Medication Instructions Recorded sildenafil 100 mg tablet 100 mg PO DAILY PRN sexual 05/05/22 activity #20 tabs olmesartan 40 mg tablet 40 mg PO DAILY #90 tabs 08/29/24 amlodipine 5 mg tablet 5 mg PO QAM #90 tabs 10/30/24 rosuvastatin 20 mg tablet 20 mg PO QAM #90 tabs 11/26/24 Results & Data (ED) Vital Signs Vital Signs - 24 hr 12/03/24 09:38 12/03/24 10:00 12/03/24 10:02 Temperature 36.5 C Temperature Source Oral Pulse Rate - Lying Pulse Rate - Sitting Pulse Rate - Standing Pulse Rate 45 L 57 L 54 L Pulse Rate from SpO2 Sensor Pulse Rhythm Regular Pulse Strength Normal Respiratory Rate 18 15 Blood Pressure - Lying Blood Pressure - Sitting Blood Pressure- Standing Blood Pressure 129/79 119/88 Blood Pressure Mean 95 93 Blood Pressure Position Sitting Pulse Oximetry 97 95 Oxygen Delivery Method Room Air Sepsis Recent Fever Within 48 Hours No Sepsis New/Unexplained Change in Mental Status No Sepsis Action Taken by Nursing No Action Required 12/03/24 11:00 12/03/24 11:30 12/03/24 12:00 Temperature Temperature Source Pulse Rate - Lying Pulse Rate - Sitting Pulse Rate - Standing Pulse Rate 55 L 50 L 54 L Pulse Rate from SpO2 Sensor 50 L Pulse Rhythm Pulse Strength Respiratory Rate 16 14 18 Blood Pressure - Lying Blood Pressure - Sitting Blood Pressure- Standing Blood Pressure 111/72 112/75 125/71 Blood Pressure Mean 80 87 81 Blood Pressure Position Pulse Oximetry 96 97 97 Oxygen Delivery Method Room Air Room Air Room Air Sepsis Recent Fever Within 48 Hours Sepsis New/Unexplained Change in Mental Status Sepsis Action Taken by Nursing 12/03/24 12:30 12/03/24 13:00 12/03/24 13:14 Temperature Temperature Source Pulse Rate - Lying 50 L Pulse Rate - Sitting 55 L Pulse Rate - Standing 56 L Pulse Rate 49 L 52 L Pulse Rate from SpO2 Sensor Pulse Rhythm Pulse Strength Respiratory Rate 14 14 Blood Pressure - Lying 127/74 Blood Pressure - Sitting 126/83 Blood Pressure- Standing 136/84 Blood Pressure 121/77 118/76 Blood Pressure Mean 84 82 Blood Pressure Position Pulse Oximetry 97 97 Oxygen Delivery Method Room Air Room Air Sepsis Recent Fever Within 48 Hours Sepsis New/Unexplained Change in Mental Status Sepsis Action Taken by Nursing 12/03/24 13:30 12/03/24 14:00 12/03/24 14:30 Temperature Temperature Source Pulse Rate - Lying Pulse Rate - Sitting Pulse Rate - Standing Pulse Rate 47 L 47 L 48 L Pulse Rate from SpO2 Sensor 48 L 49 L Pulse Rhythm Pulse Strength Respiratory Rate 13 14 15 Blood Pressure - Lying Blood Pressure - Sitting Blood Pressure- Standing Blood Pressure 131/78 127/90 128/76 Blood Pressure Mean 95 94 93 Blood Pressure Position Pulse Oximetry 98 98 97 Oxygen Delivery Method Room Air Room Air Room Air Sepsis Recent Fever Within 48 Hours Sepsis New/Unexplained Change in Mental Status Sepsis Action Taken by Nursing 12/03/24 15:00 12/03/24 15:30 12/03/24 16:46 Temperature Temperature Source Pulse Rate - Lying Pulse Rate - Sitting Pulse Rate - Standing Pulse Rate 56 L 49 L 64 Pulse Rate from SpO2 Sensor Pulse Rhythm Pulse Strength Respiratory Rate 20 14 24 Blood Pressure - Lying Blood Pressure - Sitting Blood Pressure- Standing Blood Pressure 120/70 127/73 139/80 Blood Pressure Mean 83 86 86 Blood Pressure Position Pulse Oximetry 98 97 99 Oxygen Delivery Method Room Air Room Air Room Air Sepsis Recent Fever Within 48 Hours Sepsis New/Unexplained Change in Mental Status Sepsis Action Taken by Nursing 12/03/24 17:00 Temperature Temperature Source Pulse Rate - Lying Pulse Rate - Sitting Pulse Rate - Standing Pulse Rate 68 Pulse Rate from SpO2 Sensor 79 Pulse Rhythm Pulse Strength Respiratory Rate 20 Blood Pressure - Lying Blood Pressure - Sitting Blood Pressure- Standing Blood Pressure Blood Pressure Mean Blood Pressure Position Pulse Oximetry 97 Oxygen Delivery Method Sepsis Recent Fever Within 48 Hours Sepsis New/Unexplained Change in Mental Status Sepsis Action Taken by Nursing Laboratory Data 12/03/24 09:46 12/03/24 09:46 Lab Results 12/03/24 Range/Units 09:46 WBC 7.49 (4.8-10.8) K/ul RBC 5.14 (4.70-6.10) M/uL Hgb 15.0 (14.0-18.0) g/dl Hct 45.5 (42.0-52.0) % MCV 88.5 (80.0-100.0) fL MCH 29.2 (25.0-34.0) pg MCHC 33.0 (32.0-36.0) g/dL RDW Std Deviation 43.7 (36.4-46.3) fL RDW Coeff of Brandi 13.4 (11.5-14.5) % Plt Count 187 (130-400) K/uL MPV 11.6 (9.4-12.4) fL Immature Gran % (Auto) 0.1 % Neut % (Auto) 72.0 % Lymph % (Auto) 16.8 % [place] % (Auto) 9.1 % Eos % (Auto) 1.6 % Baso % (Auto) 0.4 % Neut # (Auto) 5.39 (1.40-6.50) K/uL Lymph # (Auto) 1.26 (1.20-3.40) K/uL [place] # (Auto) 0.68 H (0.11-0.59) K/uL Eos # (Auto) 0.12 (0.00-0.50) K/uL Baso # (Auto) 0.03 (0.00-0.20) K/uL Immature Gran # (Auto) 0.01 (0.01-0.20) K/uL PT 10.8 (9.0-12.0) Seconds INR 1.0 (0.9-1.1) Sodium 137 (136-145) mmol/L Potassium 4.8 (3.5-5.1) mmol/L Chloride 107 (98-107) mmol/L Carbon Dioxide 27 (21-32) mmol/L Anion Gap 3 (3-11) BUN 18 (6-23) mg/dl Creatinine 1.02 (0.6-1.4) mg/dl Est Cr Clr Drug Dosing 72.0 ml/min eGFR 79.07 BUN/Creatinine Ratio 17.6 (10-20) Glucose 114 H (70-99(Fasting)) mg/dl Calcium 9.0 (8.6-10.3) mg/dl Magnesium 2.1 (1.7-2.4) mg/dl Total Bilirubin 0.5 (0.2-1.0) mg/dl AST 22 (13-39) U/L ALT 25 (7-52) U/L Alkaline Phosphatase 61 (34-104) U/L Troponin I High Sens 7.8 (0-20) pg/ml Total Protein 7.2 (6.0-8.3) gm/dl Albumin 4.4 (3.4-5.0) gm/dl Globulin 2.8 (2.5-4.0) gm/dl Albumin/Globulin Ratio 1.6 (0.9-2) Lipase 47 (11-82) U/L TSH 2.140 (0.300-4.500) uIu/ml Administered Medications Sodium Chloride (Nss) 1,000 mls @ 125 mls/hr IV .Q8H DAISY Stop: 12/04/24 10:14 Last Infusion: 12/03/24 16:49 Dose: 125 mls/hr Documented By: Infusion: 12/03/24 15:56 Dose: 0 mls/hr Documented By: Admin: 12/03/24 10:12 Dose: 125 mls/hr Documented By: LUZ ELENA Discontinued Medications Ioversol (Optiray 320 125ml) 120 ml IV ONCE ONE Stop: 12/03/24 11:49 Last Admin: 12/03/24 11:49 Dose: 120 ml Documented By: BRYANT Lorazepam (Lorazepam 2 Mg/1 Ml Vial) 0.5 mg IV NOW STA Stop: 12/03/24 16:34 Last Admin: 12/03/24 16:47 Dose: 0.5 mg Documented By: OTILIA Imaging Data Radiologist's Impression: Chest X-Ray 12/03/24 10:03 XR chest 1V portable CLINICAL HISTORY: dizzy, LUE pain COMPARISON STUDY: Chest radiograph 09/23/2020. FINDINGS: Lung volumes are normal. Lungs are clear. There is no pneumothorax or pleural effusion. Cardiac size is normal. Mediastinal contours are normal. There is no evidence for pulmonary edema. IMPRESSION: No acute cardiopulmonary findings. ACT 112: Negative or not required by law. Electronically signed by: Madhu Lomeli M.D. 12/03/2024 10:[address] 12/03/24 11:11 CT SCAN OF THE BRAIN WITHOUT IV CONTRAST CLINICAL HISTORY: Dizziness. Left upper extremity paresthesias. COMPARISON STUDY: Head CT January 10, 2019. TECHNIQUE: Unenhanced axial CT scan of the brain was performed from the vertex to the skull base. A dose lowering technique was utilized adhering to the principles of ALARA. FINDINGS: Brain parenchyma: No acute intracranial hemorrhage, midline shift or mass effect is present. Morrison-white matter differentiation is preserved. There are no extra- axial fluid collections. There are no findings to suggest acute dural sinus thrombosis or acute territorial infarct. Ventricles, sulci, cisterns: There is no hydrocephalus. The basal cisterns are patent. Calvarium: Unremarkable. A small lipoma within the left forehead is unchanged. Sinuses and mastoids: The mastoid air cells are clear. There is mild polypoid mucosal thickening of the maxillary sinuses. Orbits: The bony orbits are grossly intact. IMPRESSION: No acute intracranial findings. ACT 112: Negative or not required by law. Electronically signed by: Madhu Lomeli M.D. 12/03/2024 12:02 PM Head CTA 12/03/24 11:11 CT angio head w con, CT angio neck with con CLINICAL HISTORY: 69 years-old Male with dizzy, LUE paresthesias. Acute dizziness COMPARISON STUDY: Head CT of same day TECHNIQUE: Following the IV administration of 120 cc of Optiray, CT angiogram of the head and neck was performed from the aortic arch to the skull apex. Images are reviewed in the axial, sagittal, and coronal planes. 3-D MIPS images are created and assessed. IV contrast was administered without complication. All measurements were obtained according to NASCET criteria. A dose lowering technique was utilized adhering to the principles of ALARA. CT DOSE: 1294.05 mGy.cm FINDINGS: CT BRAIN: Dictated separately CT ANGIOGRAM OF THE HEAD AND NECK: For vessel morphology of the thoracic aortic arch. Patency of the innominate and imaged subclavian arteries. The common carotid arteries are patent. Moderate atherosclerosis of the carotid bulbs causes less than 50% stenosis bilaterally. The bilateral anterior and middle cerebral arteries are also patent. Dominant right vertebral artery. 50% stenosis of the V2 segment left vertebral artery at the level of C5-C6 secondary to uncovertebral hypertrophy. The vertebrobasilar system and posterior cerebral arteries are otherwise widely patent. There is no aneurysm, high-grade stenosis, or proximal branch occlusion identified. Dural sinuses appear patent. The lung apices are clear. Calcifications of the posterior longitudinal ligament, most pronounced at C4-C5. Left frontal scalp lipoma measures 1.8 cm. IMPRESSION: CTA of the head and neck demonstrates no aneurysm, dissection, high- grade stenosis or arterial occlusion. ACT 112: Negative or not required by law. The above report was generated using voice recognition software. It may contain grammatical, syntax or spelling errors. Electronically signed by: Donnie Johnson M.D. 12/03/2024 12:40 PM Neck CTA 12/03/24 11:11 CT angio head w con, CT angio neck with con CLINICAL HISTORY: 69 years-old Male with dizzy, LUE paresthesias. Acute dizziness COMPARISON STUDY: Head CT of same day TECHNIQUE: Following the IV administration of 120 cc of Optiray, CT angiogram of the head and neck was performed from the aortic arch to the skull apex. Images are reviewed in the axial, sagittal, and coronal planes. 3-D MIPS images are created and assessed. IV contrast was administered without complication. All measurements were obtained according to NASCET criteria. A dose lowering technique was utilized adhering to the principles of ALARA. CT DOSE: 1294.05 mGy.cm FINDINGS: CT BRAIN: Dictated separately CT ANGIOGRAM OF THE HEAD AND NECK: For vessel morphology of the thoracic aortic arch. Patency of the innominate and imaged subclavian arteries. The common carotid arteries are patent. Moderate atherosclerosis of the carotid bulbs causes less than 50% stenosis bilaterally. The bilateral anterior and middle cerebral arteries are also patent. Dominant right vertebral artery. 50% stenosis of the V2 segment left vertebral artery at the level of C5-C6 secondary to uncovertebral hypertrophy. The vertebrobasilar system and posterior cerebral arteries are otherwise widely patent. There is no aneurysm, high-grade stenosis, or proximal branch occlusion identified. Dural sinuses appear patent. The lung apices are clear. Calcifications of the posterior longitudinal ligament, most pronounced at C4-C5. Left frontal scalp lipoma measures 1.8 cm. IMPRESSION: CTA of the head and neck demonstrates no aneurysm, dissection, high- grade stenosis or arterial occlusion. ACT 112: Negative or not required by law. The above report was generated using voice recognition software. It may contain grammatical, syntax or spelling errors. Electronically signed by: Donnie Johnson M.D. 12/03/2024 12:40 PM Discharge Plan Visit Data Chief Complaint: Referred by Doctor Stated Complaint: DIZZY TINGLING L ARM/REFERRED BY DR ED Provider: Lyn Hudson Discharge Problem: Dizziness, Arm paresthesia, left Forms Stand Alone Forms: [employer] Prescriptions Prescriptions: No Action sildenafil 100 mg tablet 100 mg PO DAILY PRN (Reason: sexual activity) Qty: 20 5RF Rx Instructions: 12/03- no fill history available unable to verify administer 30 minutes to 4 hours before activity olmesartan 40 mg tablet 40 mg PO DAILY Qty: 90 3RF amlodipine 5 mg tablet 5 mg PO QAM Qty: 90 3RF rosuvastatin 20 mg tablet 20 mg PO QAM Qty: 90 3RF Referrals Referrals: Brandi Jefferson MD [Primary Care Provider] -
[2024-12-03] MEDS: LORazepam 2 MG/1 ML VIAL IV STA (16:47)
[2024-12-03] MEDS: ASPIRIN CHEW 324 MG PO STA (18:11)
--- NOTE | 2024-12-03 18:11 | History & Physical Report ---
Date of Service December 03, 2024 Assessment & Plan (1) Arm paresthesia, left: (2) Dizziness: (3) Prediabetes: (4) Hypertension: (5) Tobacco use disorder: (6) Hyperlipidemia: Plan #Dizziness and left arm numbness - given that his dizziness is much more of a disequilibrium, and seems to be absolutely constant for 4 days as well as the left arm numbness, stroke is the diagnosis of exclusion. CT of his head is reassuring, CT angio does not show a large vessel occlusionand if it is a CVA, I would be most suspicious of small vessel disease anyway, given his risks of male, age, hypertension, dyslipidemia, tobacco abuse. - Check MRI brainthe ER tried to do this and he did not think he would have trouble, but was too claustrophobic. He had been given 0.5 mg Ativan which was ineffective. He asked about anesthesia/essentially being put underI discussed that that is an option, but because it is a little bit risky or generally anesthesia would prefer that we try with more adequate dosing of benzodiazepines firstMRI reordered with 1 mg Ativan environmental services specialist, and up to another 2 mg (3 mg total) if sedation is not adequate to get through the test. Discussed with patient and family that if 3 mg of Ativan is not enough, then it should be quite reasonable to enlist anesthesiology. - With stroke being the diagnosis of exclusion, he is already on a moderate intensity statin, I gave him aspirin loading, his ABCD2 would be 3and he was not on any antiplatelet beforeso there would not be a clear benefit to dual antiplatelets at this time - he actually just had lipids and A1c checked about a month agohis A1c was 5.7, and his total cholesterol was 139 with an HDL of 49, LDL of 66 and triglycerides 118given his age and the small but real risk of intracranial bleeding with hyper suppression of LDL (conventionally defined as an LDL less than 50) I would believe he probably is at the optimal risk-benefit balance on his moderate intensity of 20 mg rosuvastatin - follow blood pressure, adjust medications if needed - follow rhythm and check echocardiogram for completeness - while his numbness does not seem to follow a radicular pattern, and is numbness more than pain, should stroke be ruled out it seems quite reasonable to pursue cervical spine radicular disease as a secondary differential #hypertension - continue amlodipine and olmesartanadjust if needed #dyslipidemia - as above noted, his risk-benefit balance in relationship to his lipids appears to be optimized at his 20 mg rosuvastatin dosing #tobacco abuse - counseled to quit, discussed that it would be a major risk factor for stroke if this turns out to be a stroke #groin pain - exam was normal, I wonder if he has a little bit of a varicocele and working/straining may be accentuated at somethis could account for testicular pain with a normal exam. Follow clinically #DVT prophylaxis - Lovenox History of Present Illness Chief Complaint: Dizziness and left arm numbness Primary Care Provider: Brandi Jefferson MD Patient is a very pleasant 69-year-old male who notes that on he started with dizziness and left arm numbness. He was gardeninghis son notes that he did an excessive amount of work putting in his entire garden over about 3 days. During that time patient noted some dizzinessat first he describes it as a change of position dizziness, but then whenever I talk about it further, it is not at all a lightheadedness or orthostatic sensation and much more of an unsteadiness or disequilibrium sensation.Somewhere along the time that this was occurring he also started to notice a numbness in his left armnot a dense numbness but definitely some degree of paresthesia or tinglingand it is not isolated to anyone part of the armhe notes that it really feels like it is his whole arm. He denies any face numbness or weakness, but does note generally in a hard to describe way that his face feels tight Otherwise incidentally he notes some lower abdominal and groin pain today dizziness/disequilibrium/cloudy head sensation and arm numbness basically nonstop since Allergies Allergy/AdvReac Type Severity Reaction Status Date / Time No Known Allergies Allergy Verified 11/02/24 13:58 Home Medications Medication Instructions Recorded Confirmed Type sildenafil 100 mg tablet 100 mg PO DAILY PRN sexual 05/05/22 12/03/24 Rx activity #20 tabs olmesartan 40 mg tablet 40 mg PO DAILY #90 tabs 08/29/24 12/03/24 Rx amlodipine 5 mg tablet 5 mg PO QAM #90 tabs 10/30/24 12/03/24 Rx rosuvastatin 20 mg tablet 20 mg PO QAM #90 tabs 11/26/24 12/03/24 Rx Past Med/Surg History Problem List Arm paresthesia, left (Acute) Dizziness (Acute) Tinnitus Prediabetes Erectile dysfunction Kidney stones, calcium oxalate GERD without esophagitis Essential tremor Hypertension BPH w urinary obs/LUTS Lesion of pancreas NO INCREASE IN SIZE COMPARED TO 2011 SCAN (CT SCAN DECEMBER 08, 2018) Fatty liver Tobacco use disorder (Chronic) Hyperlipidemia Medical History Fatty liver Essential tremor Prediabetes pt denies Lesion of pancreas as per patient monitored yearly and has not changed in size Hypertension Hyperlipidemia GERD (gastroesophageal reflux disease) Benign localized prostatic hyperplasia with lower urinary tract symptoms (LUTS) Hiatal hernia hx Tinnitus of both ears Vitamin D deficiency Bladder calculus Bladder stones hx of History of kidney stones Degenerative disc disease Cervical - no surgies Snores No sleep apnea dx - no sleep study Ureteral calculus Kidney stones hx Surgical History Hx of lithotripsy Hx of transurethral resection of prostate S/P excision of lipoma Right side of neck H/O knee surgery Right Tendon knee repair History of colonoscopy History of rotator cuff surgery Left History of repair of rotator cuff Right Family History Father , age 60 of lung cancer Cancer Lung cancer Mother , AGE 66 HEART ATTACK Hypertension Myocardial infarction Son Non Hodgkin's lymphoma Other COPD (chronic obstructive pulmonary disease) Kidney disease Lung disease Denies family history of Ovarian cancer Prostate cancer Breast cancer Social History Smoking Status: Never smoker Tobacco Type: Smokeless Tobacco (Dip or Chew) and Declines Cigarettes Per Day: 1 can every 2-3 days; Second Hand Exposure: No; Do You Dip or Chew Tobacco: Yes (Advised); Hx Alcohol Use: Yes Alcohol type: beer Alcohol Intake Frequency: Monthly or Less Hx Substance Use: Yes Last Used Substance: Unknown Last Used Substance Other:: Advised Substance Use Type Other:: "Cannabis gummies" Preferred Language: Japanese Communication Ability: Effective Binding Cutter Required: No Beliefs That Will Affect Care: None marital status: Current Living Situation: Spouse Current Living Situation Comment: LIVES WITH AND SON current occupational status: retired How many Children do You have: 2 Feels Safe at Home: Yes Diet: regular during the past year weight has: remained stable Seatbelt Use: always Assistive Devices: Glasses Review of Systems Review of Systems: All systems reviewed & are unremarkable except as noted in HPI & below Physical Exam Physical Exam: in general he is awake alert oriented x 3 pleasant no distress. HEENT normocephalic atraumatic mucous membranes moist. Oropharynx mildly erythematous with some mucus consistent with seasonal allergies. Cardio is regular without rubs murmurs or gallops. Lungs are clear to auscultation bilaterally no rales rhonchi or wheeze with good effort. Abdomen is soft mild distention nontender no guarding rebound or rigidity. Neuro shows cranial nerves II through XII be grossly intact gross motor is 5 out of 5 and equal bilaterally, gross sensory is actually also intact and equal bilaterally to confrontational light touch (i.e. his neuroexam appears totally normal to me). Skin without rashes pallor or icterus. Mental status shows good recent and remote recall normal mood and affect good judgment and insight. given his groin pain, testicular exam showed no lumps or masses no erythema, grossly normal testicles except for that the left one was moderately tender. No hernias noted. Results & Data Results & Data Vital Signs (Past 12 Hours) Vital Signs Temp Pulse Resp BP Pulse Ox O2 Del Method 12/03/24 17:00 68 20 97 12/03/24 16:46 64 24 139/80 99 Room Air 12/03/24 15:30 49 L 14 127/73 97 Room Air 12/03/24 15:00 56 L 20 120/70 98 Room Air 12/03/24 14:30 48 L 15 128/76 97 Room Air 12/03/24 14:00 47 L 14 127/90 98 Room Air 12/03/24 13:30 47 L 13 131/78 98 Room Air 12/03/24 13:00 52 L 14 118/76 97 Room Air 12/03/24 12:30 49 L 14 121/77 97 Room Air 12/03/24 12:00 54 L 18 125/71 97 Room Air 12/03/24 11:30 50 L 14 112/75 97 Room Air 12/03/24 11:00 55 L 16 111/72 96 Room Air 12/03/24 10:02 54 L 12/03/24 10:00 57 L 15 119/88 95 12/03/24 09:38 97.7 F 45 L 18 129/79 97 Room Air Code Status & VTE Plan VTE Prophylaxis Plan VTE Prophylaxis will be ordered: Yes PG Care Time/CCT Total # of Minutes Spent Total Time Spent with Patient: Total time spent is greater than 50% in coordination of care (as documented) at patient's floor/unit and/or counseling patient: Coding Level of Care Code 35093 INT INP/OBS CARE 3/75MIN Diagnoses Arm paresthesia, left R20.2 Dizziness R42 Prediabetes R73.03 Hypertension I10 Tobacco use disorder F17.200 Hyperlipidemia E78.5
[2024-12-03] MEDS ORDERED: ONDANSETRON INJ 2 MG/ML 2 ML VIAL IV PRN (18:36)
[2024-12-03] MEDS ORDERED: LORazepam 2 MG/1 ML VIAL IV PRN (18:36)
[2024-12-03] MEDS ORDERED: POLYETHYLENE (MIRALAX) 17 GM PACK PO PRN (18:36)
[2024-12-03] MEDS ORDERED: MELATONIN 3 MG TAB PO PRN (18:36)
[2024-12-03] MEDS ORDERED: PHARMACIST DISCHARGE MED REC CONSULT PRN (18:36)
[2024-12-03] MEDS ORDERED: MAGNESIUM HYDROXIDE SUSP 30 ML UDC PO PRN (18:36)
[2024-12-03] MEDS ORDERED: ALUMINUM/MAGNESIUM SUSP 30 ML UDC PO PRN (18:36)
[2024-12-03] MEDS: ACETAMINOPHEN 325 MG TAB PO PRN (19:27)
[2024-12-04 05:49] LABS: Basophils # (auto) 0.03 K/uL (0.00-0.20); Basophils % (auto) 0.4 %; Eosinophils # (auto) 0.14 K/uL (0.00-0.50); Hematocrit (blood only) 40.2 % (42.0-52.0); Hemoglobin 13.5 g/dl (14.0-18.0); Immature Granulocytes # (auto) 0.01 K/uL (0.01-0.20); Immature Granulocytes % (auto) 0.1 %; Lymphocytes # (auto) 1.69 K/uL (1.20-3.40); Mean Corpuscular Hemoglobin 29.3 pg (25.0-34.0); Mean Corpuscular Hgb Conc 33.6 g/dL (32.0-36.0); Mean Corpuscular Volume 87.4 fL (80.0-100.0); Mean Platelet Volume 11.5 fL (9.4-12.4); Monocytes # (auto) 0.59 K/uL (0.11-0.59); Monocytes % (auto) 8.4 %; Neutrophils # (auto) 4.58 K/uL (1.40-6.50); Neutrophils % (auto) 65.1 %; Platelet Count 162 K/uL (130-400); RDW Coefficient of Variation 13.3 % (11.5-14.5); RDW Standard Deviation 42.6 fL (36.4-46.3); White Blood Count 7.04 K/ul (4.8-10.8)
[2024-12-04 06:03] LABS: BUN Creatinine Ratio 18.9 (10-20); Calcium 8.5 mg/dl (8.6-10.3); Chol HDL Ratio 2.9 (0-5); Creatinine Clr Calc Pharmacy 81.6 ml/min; Potassium 4.3 mmol/L (3.5-5.1)
[2024-12-04 08:25] LABS: Estimated Average Glucose 120 mg/dl; Hemoglobin A1C 5.8 % (4.5-5.6)
[2024-12-04 11:45] VITALS: BP 138/77; PULSE 53; RESP 20; TEMP 97.9; O2SAT 97
[2024-12-04] MEDS: ENOXAPARIN INJ 40 MG/0.4 ML SYR SQ SCH (12:29)
--- NOTE | 2024-12-04 13:01 | Hospitalist Progress Note ---
Date of Service December 04, 2024 Assessment & Plan (1) Arm paresthesia, left: Plan: Nearly resolved. This appears to be a left cervical radiculopathy. Unfortunately, MRI scanning cannot be performed due to patient anxiety. He failed an attempt with Ativan prior to the MRI scan. If this needs to be pursued further, anesthesiology will need to be involved and this can be done as an outpatient. A short course of tapering prednisone will be ordered at discharge (2) Dizziness: Plan: Present on admission. Now resolved (3) Prediabetes: Plan: Stable. Continue current medical management (4) Hypertension: Plan: Stable. Continue current medical management (5) Tobacco use disorder: Plan: Smoking cessation recommendations given to the patient (6) Hyperlipidemia: Plan: Stable. Continue current medical management Plan Home today, December 04, on a tapering dose of oral prednisone. Follow-up with PCP as soon as possible after discharge Admission and Anticipated Discharge Date Admission Date: December 03, 2024 Subjective Alert and oriented. Left arm numbness has nearly completely resolved. No other neurological deficits. I believe this is highly unlikely an acute CVA and much more likely a mild left cervical radiculopathy. Ativan did not work for the MRI scan to be undertaken and in order for anesthesia to be involved with higher levels of sedation for the MRI scanning it would have to be scheduled and tomorrow would be the first day this could be done. Again, I do not believe this is an acute CVA and he does not have to stay another day in the hospital simply to get a brain MRI scan. This can be pursued further as an outpatient if deemed necessary by his PCP. Review of Systems 2 Review of Systems: Constitutionalno fever or chills ENTno blurred vision, no double vision, no epistaxis, no sore throat Respiratoryno cough, no wheezing, no shortness of breath Cardiacno palpitations, no chest pain, no syncope Jerry nausea, vomiting, diarrhea, melena, hematochezia GUno urinary retention, no urinary incontinence, no dysuria, no hematuria Musculoskeletalno joint pain, no muscle tenderness Skinno bruising, no rashes, no pruritus Neurono isolated weakness, no weakness. Left arm paresthesia present on admission has nearly resolved Psychno depression, no anxiety Physical Exam 2 Physical Exam: General-alert and oriented x3, no fever, no chills HEENT-head atraumatic and normocephalic, pupils equal and reactive to light, extraocular muscles intact Neck-no lymphadenopathy or thyromegaly, trachea midline Chest-clear to auscultation. No rales, wheezing or rhonchi Cardiac-regular rate and rhythm, normal S1 and S2 Abdomen-normal bowel sounds, no hepatosplenomegaly Extremities-no cyanosis, clubbing, or edema Neuro-cranial nerves II through XII intact, motor and sensory function within normal limits, strength symmetrical, no focal deficits Psych-normal affect, normal mood Results & Data Results & Data Vital Signs (Past 12 Hours) Vital Signs Temp Pulse Pulse Resp BP Pulse Ox O2 Del Method 12/04/24 11:44 36.6 C 53 L 20 138/77 97 Room Air 12/04/24 08:25 51 L 12/04/24 08:24 36.7 C 54 L 18 128/76 96 Room Air 12/04/24 02:43 36.6 C 60 18 109/72 97 Room Air Laboratory Results 12/04/24 05:27 12/04/24 05:27 PG Care Time/CCT Total # of Minutes Spent Total Time Spent with Patient: Total time spent is greater than 50% in coordination of care (as documented) at patient's floor/unit and/or counseling patient: Coding Level of Care Code 96138 SUB INP/OBS CARE 2/35MIN Diagnoses Arm paresthesia, left R20.2 Dizziness R42 Prediabetes R73.03 Hypertension I10 Tobacco use disorder F17.200 Hyperlipidemia E78.5
[2024-12-04] MEDS ORDERED: STROKE PATIENT DISCHARGE STA (13:03)
--- NOTE | 2024-12-04 13:04 | Discharge Summary ---
Discharge Summary Date of Service December 04, 2024 Principal Dx & Hospital Course #1 = Principal Diagnosis (1) Arm paresthesia, left: Nearly resolved. This appears to be a left cervical radiculopathy. Unfortunately, MRI scanning cannot be performed due to patient anxiety. He failed an attempt with Ativan prior to the MRI scan. If this needs to be pursued further, anesthesiology will need to be involved and this can be done as an outpatient. A short course of tapering prednisone will be ordered at discharge (2) Dizziness: Present on admission. Now resolved (3) Prediabetes: Stable. Continue current medical management (4) Hypertension: Stable. Continue current medical management (5) Tobacco use disorder: Smoking cessation recommendations given to the patient (6) Hyperlipidemia: Stable. Continue current medical management Plan Home today, December 04, on a tapering dose of oral prednisone. Follow-up with PCP as soon as possible after discharge Admission HPI Per Admitting Provider Patient is a very pleasant 69-year-old male who notes that on he started with dizziness and left arm numbness. He was gardeninghis son notes that he did an excessive amount of work putting in his entire garden over about 3 days. During that time patient noted some dizzinessat first he describes it as a change of position dizziness, but then whenever I talk about it further, it is not at all a lightheadedness or orthostatic sensation and much more of an unsteadiness or disequilibrium sensation.Somewhere along the time that this was occurring he also started to notice a numbness in his left armnot a dense numbness but definitely some degree of paresthesia or tinglingand it is not isolated to anyone part of the armhe notes that it really feels like it is his whole arm. He denies any face numbness or weakness, but does note generally in a hard to describe way that his face feels tight Otherwise incidentally he notes some lower abdominal and groin pain today dizziness/disequilibrium/cloudy head sensation and arm numbness basically nonstop since Discharge Exam General-alert and oriented x3, no fever, no chills HEENT-head atraumatic and normocephalic, pupils equal and reactive to light, extraocular muscles intact Neck-no lymphadenopathy or thyromegaly, trachea midline Chest-clear to auscultation. No rales, wheezing or rhonchi Cardiac-regular rate and rhythm, normal S1 and S2 Abdomen-normal bowel sounds, no hepatosplenomegaly Extremities-no cyanosis, clubbing, or edema Neuro-cranial nerves II through XII intact, motor and sensory function within normal limits, strength symmetrical, no focal deficits Psych-normal affect, normal mood Discharge Plan Discharge Items Patient Disposition: Home - Self-Care Reason For Visit: L ARM NUMBNESS, DIZZY, R/O CVA Discharge Diagnosis: Left arm paresthesia suspected due to left cervical radiculopathy Activity: Resume your previous activity Non-emergency contact: Primary Care Provider Call non-emergency contact if: your symptoms worsen Follow-up/Referrals: Brandi Jefferson MD [Primary Care Provider] - Diet: Regular and Heart Healthy Addtl Attending Provider Instructions: Take prednisone in a tapering dose fashion as directed. A prescription has been sent to [facility] pharmacy in [place]. All other medications remain the same. See primary care physician as soon as possible Pending Studies at Discharge: No Stand-Alone Forms: My [facility] [email or web address], Smoking Cessation Medications and DC Order Prescriptions: New prednisone 10 mg tablet See Rx Instructions .ROUTE .COMPLEX Qty: 12 0RF Rx Instructions: 10 mg orally 3 times a day for 2 days, then 10 mg twice a day for 2 days, then 10 mg once a day for 2 days, then stop Continued sildenafil 100 mg tablet 100 mg PO DAILY PRN (Reason: sexual activity) Qty: 20 5RF Rx Instructions: 12/03- no fill history available unable to verify administer 30 minutes to 4 hours before activity olmesartan 40 mg tablet 40 mg PO DAILY Qty: 90 3RF amlodipine 5 mg tablet 5 mg PO QAM Qty: 90 3RF rosuvastatin 20 mg tablet 20 mg PO QAM Qty: 90 3RF Discharge Orders: Discharge Order (Routine); Ordered 12/04/24 Ordered By: Best Paul Admission Data Admit Date/Time: 12/03/24 17:59 Attending Provider: Best Paul Admit Provider: Aly Ferreira Primary Care Provider: Brandi Jefferson Other Providers: Aly Ferreira; Misha Mc Hospital Stay Data Consultations 12/03/24 17:30 ED Decision to Admit Stat 12/04/24 09:24 Consult Anesthesiology Routine Diagnostic Imagining Performed 12/03/24 11:11 CT angio head w con Stat CT angio neck with con Stat CT head/brain wo con Stat Pending Results Patient Have Any Pending Studies at Discharge: No Discharge Instructions Given to Patient (Per Discharging Provider) Take prednisone in a tapering dose fashion as directed. A prescription has been sent to [facility] pharmacy in [place]. All other medications remain the same. See primary care physician as soon as possible Total Time Total Time Spent Total Time Spent (In Minutes): 45 minutes Coding Level of Care Code 69633 INP/OBS DISCH >30 MIN Diagnoses Arm paresthesia, left R20.2 Dizziness R42 Prediabetes R73.03 Hypertension I10 Tobacco use disorder F17.200 Hyperlipidemia E78.5
[2024-12-04] MEDS: amLODIPine BESYLATE 5 MG TAB PO SCH (13:41)
[2024-12-04] MEDS: LOSARTAN POTASSIUM 50 MG TAB PO SCH (13:41)
[2024-12-04] MEDS: ASPIRIN 81 MG ECTAB PO SCH (13:41)
[2024-12-04] MEDS: ROSUVASTATIN CALCIUM 20 MG TAB PO SCH (13:41)
--- NOTE | 2024-12-04 15:58 | XCELERA ---
[id number]
--- NOTE | 2024-12-06 08:57 | Electrocardiogram Report ---
Test Reason : Blood Pressure : */* mmHG Vent. Rate : 55 BPM Atrial Rate : 55 BPM P-R Int : 178 ms QRS Dur : 98 ms QT Int : 414 ms P-R-T Axes : 36 -12 4 degrees QTcB Int : 396 ms Sinus bradycardia Otherwise normal ECG When compared with ECG of 14-Apr-2021 11:16, No significant change was found Confirmed by Pablo Pearce ([id number]) on 12/06/2024 8:57:25 AM Referred By: Brandi Jefferson Confirmed By: Pablo Pearce
== END 2024-12-04 14:16 | disposition home or self-care (01) ==
LOC: 4W 09:31 → ED 09:31 → SUATTDRO 17:59 → 4W 18:15
DX: M54.12 Radiculopathy, cervical region; I10 Essential (primary) hypertension; F17.220 Nicotine dependence, chewing tobacco, uncomplicated; R42 Dizziness and giddiness; Z79.899 Other long term (current) drug therapy; F40.240 Claustrophobia; N50.819 Testicular pain, unspecified; R73.03 Prediabetes; E78.5 Hyperlipidemia, unspecified